=== PATIENT | male | born 1995 | race Caucasian/White ===

== ENCOUNTER 2017-11-24 00:30 | Emergency (ER) | payer MEDICAID ==
[~2017-11-24] VITALS: Ht 182.9 cm; Wt 77.1 kg
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
--- NOTE | 2017-11-24 01:15 | NUR ---
Patient discharged with v/s stable. Written and verbal after care instructions given and explained. Patient verbalized understanding. Police with in custody. All questions addressed prior to discharge. Advised to follow up with PMD.
== END 2017-11-24 01:15 ==
LOC: EDBD 00:30 → MED 00:30
DX: Z02.89 Encounter for other administrative examinations (principal)
CPT/HCPCS: 99283

== ENCOUNTER 2017-11-26 15:36 | Emergency (ER) | payer MEDICAID ==
[~2017-11-26] VITALS: Ht 172.7 cm; Wt 77.1 kg
[2017-11-26 15:46] VITALS: BP 106/54
[2017-11-26 15:47] VITALS: BP 106/54
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
--- NOTE | 2017-11-26 17:07 | NUR ---
pt resting comfortably in the [place] at this time. t appears to be sleeping. VSS. Will continue to monitor.
[2017-11-26 18:06] VITALS: BP 110/62
--- NOTE | 2017-11-26 18:06 | NUR ---
Patient discharged with v/s stable. Written and verbal after care instructions given and explained. Patient verbalized understanding. Ambulatory with steady gait. All questions addressed prior to discharge. Advised to follow up with PMD.
== END 2017-11-26 18:06 | disposition home or self-care (01) ==
LOC: MED 15:36
DX: Z00.8 Encounter for other general examination (principal)
CPT/HCPCS: 99283

== ENCOUNTER 2019-11-26 11:45 | Emergency (ER) | payer MEDICAID ==
[~2019-11-26] VITALS: Ht 180.3 cm; Wt 68.0 kg
--- NOTE | 2019-11-26 11:45 | NUR ---
Patient BIBA BLS, transferred to bed 11. RN evaluating patient at bedside.
[2019-11-26 12:00] VITALS: BP 120/86
--- NOTE | 2019-11-26 12:09 | NUR ---
Dr. Peralta is evaluating the patient at bedside.
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
--- NOTE | 2019-11-26 13:00 | NUR ---
LUNCH TRAY ORDERED FOR PT
--- NOTE | 2019-11-26 14:30 | NUR ---
LUNCH TRAY ARRIVED AND BROUGHT TO PATIENTS BEDSIDE
[2019-11-26 15:14] VITALS: BP 124/64
== END 2019-11-26 15:14 | disposition home or self-care (01) ==
LOC: MED 11:45
DX: J02.9 Acute pharyngitis, unspecified (principal); F17.200 Nicotine dependence, unspecified, uncomplicated; F15.90 Other stimulant use, unspecified, uncomplicated; Z88.1 Allergy status to other antibiotic agents
CPT/HCPCS: 99282

== ENCOUNTER 2019-11-28 18:00 | Inpatient (IN) | payer MEDICAID ==
[~2019-11-28] VITALS: Ht 180.3 cm; Wt 66.7 kg
[2019-11-28 18:02] VITALS: BP 123/98
[2019-11-28] MEDS ORDERED: NACL 0.9% 1,000 ML IV ONE ×2 (18:05→22:40)
[2019-11-28] MEDS ORDERED: ACETAMINOPHEN EXTRA STRENGTH 500 MG TAB PO ONE (18:05)
[2019-11-28 18:37] LABS: BASOPHILS # (AUTO) 0.1 K/uL (0.00-0.22); BASOPHILS % (AUTO) 0.5 % (0.0-2.0); EOSINOPHILS % (AUTO) 0.3 % (0.0-4.0); HEMATOCRIT 40.9 % (36-52); HEMOGLOBIN 13.4 g/dL (12.0-18.0); LYMPHOCYTES # (AUTO) 3.8 K/uL (2.0-11.5); LYMPHOCYTES % (AUTO) 27.7 % (20.5-51.1); MEAN CORPUSCULAR HEMOGLOBIN 29 pg (27-31); MEAN CORPUSCULAR HGB CONC 33 g/dL (33-37); MEAN CORPUSCULAR VOLUME 89.4 fL (80-94); MONOCYTES % (AUTO) 7.2 % (1.7-9.3); NEUTROPHILS # (AUTO) 8.7 K/uL (1.8-7.7); NEUTROPHILS % (AUTO) 64.3 % (42.2-75.2); PLATELET COUNT (AUTO) 404 K/uL (140-450); RED BLOOD CELL COUNT(AUTO) 4.57 MIL/uL (4.20-6.10); RED CELL DISTRIBUTION WIDTH 13.1 % (11.6-13.7); WHITE BLOOD COUNT (AUTO) 13.6 K/uL (4.8-10.8)
[2019-11-28 19:06] LABS: ALBUMIN 3.9 g/dL (3.4-5.0); ANION GAP 15.2 (8-16); ASPARTATE AMINOTRANSFERASE 37 U/L (15-37); CARBON DIOXIDE 27.9 mmol/L (21-32); CHLORIDE 107 mmol/L (98-107); CREATININE 1.4 mg/dL (0.6-1.3); GFR ARICAN-AMERICAN 79 mL/min (>90); GLUCOSE 101 mg/dL (74-106); POTASSIUM 4.1 mmol/L (3.5-5.1); SODIUM SERUM 146 mmol/L (136-145); TOTAL BILIRUBIN 0.3 mg/dL (0.0-1.0); UREA NITROGEN, BLOOD 20 mg/dL (7-18)
[2019-11-28 19:08] LABS: SALICYLATE < 2.8 mg/dL (2.8-20.0)
[2019-11-28 19:09] LABS: ACETAMINOPHEN < 0.5 ug/ml (10-30)
[2019-11-28 19:38] LABS: APPEARANCE,URINE CLEAR (CLEAR); BILIRUBIN,URINE 1+ (NEGATIVE); BLOOD, URINE NEGATIVE (NEGATIVE); COLOR,URINE YELLOW (YELLOW); LEUKOCYTE ESTERASE ,URINE NEGATIVE (NEGATIVE); NITRITE, URINE NEGATIVE (NEGATIVE); PH,URINE 8.5 (5.0-9.0); UGLUCOSE NEGATIVE (NEGATIVE)
[2019-11-28 19:47] LABS: BARBITURATE, URINE NEGATIVE ng/ml (NEG <=200)
[2019-11-28 19:48] LABS: BENZODIAZEPINE, URINE NEGATIVE ng/mL (NEG <=200); CANNABINOID, URINE POSITIVE ng/mL (NEG <=50); COCAINE, URINE NEGATIVE ng/mL (NEG <=300); OPIATE, URINE NEGATIVE ng/mL (NEG <=2000); PHENCYCLIDINE SCREEN,URINE NEGATIVE ng/mL (NEG <=25)
[2019-11-28] MEDS ORDERED: NACL 0.9% 1,000 ML IV SCH (22:36)
[2019-11-28] MEDS ORDERED: HYDROcodone/APAP 5/325 MG 1 TAB TAB PO PRN (22:40)
[2019-11-28] MEDS ORDERED: ACETAMINOPHEN 325 MG TAB PO PRN (22:40)
[2019-11-28] MEDS ORDERED: LORazepam 2 MG/ML VIAL IM/IVP PRN (22:40)
[2019-11-28] MEDS ORDERED: VANCOMYCIN 1,000 MG in DEXTROSE 5% 250 ML IV ONE (22:40)
[2019-11-28] MEDS ORDERED: LORazepam 2 MG/ML VIAL IM ONE (22:40)
[2019-11-28] MEDS ORDERED: DOCUSATE SODIUM 100 MG GELCAP PO PRN (22:40)
[2019-11-28] MEDS ORDERED: ONDANSETRON 4 MG/2 ML VIAL IM/IVP PRN (22:40)
[2019-11-28] MEDS ORDERED: VANCOMYCIN 1,000 MG VIAL ONE (22:51)
[2019-11-28 23:09] LABS: MAGNESIUM 2.1 mg/dL (1.8-2.4); PHOSPHORUS 3.2 mg/dL (2.5-4.9); THYROID STIMULATING HORMONE 0.65 uIU/mL (0.34-3.74)
[2019-11-28] MEDS ORDERED: NACL 0.45% 1,000 ML IV ONE (23:45)
[2019-11-29] VITALS: BP 135/83
[2019-11-29] MEDS ORDERED: LORazepam 2 MG/ML VIAL IM/IVP PRN (00:50)
[2019-11-29] MEDS ORDERED: OLANZapine 5 MG TAB PO PRN (00:50)
[2019-11-29] MEDS ORDERED: VANCOMYCIN PER PHARMACY MC PRN (01:20)
[2019-11-29 06:33] LABS: BASOPHILS % (AUTO) 0.4 % (0.0-2.0); EOSINOPHILS # (AUTO) 0.2 K/uL (0-0.4); EOSINOPHILS % (AUTO) 2.5 % (0.0-4.0); LYMPHOCYTES # (AUTO) 3.1 K/uL (2.0-11.5); LYMPHOCYTES % (AUTO) 32.1 % (20.5-51.1); MEAN CORPUSCULAR HEMOGLOBIN 30 pg (27-31); MEAN CORPUSCULAR HGB CONC 33 g/dL (33-37); MEAN CORPUSCULAR VOLUME 89.7 fL (80-94); MONOCYTES # (AUTO) 0.7 K/uL (0.8-1.0); MONOCYTES % (AUTO) 7.2 % (1.7-9.3); NEUTROPHILS # (AUTO) 5.7 K/uL (1.8-7.7); NEUTROPHILS % (AUTO) 57.8 % (42.2-75.2); PLATELET COUNT (AUTO) 327 K/uL (140-450); RED BLOOD CELL COUNT(AUTO) 4.35 MIL/uL (4.20-6.10); RED CELL DISTRIBUTION WIDTH 13.3 % (11.6-13.7); WHITE BLOOD COUNT (AUTO) 9.8 K/uL (4.8-10.8)
[2019-11-29 06:51] LABS: ANION GAP 13.3 (8-16); CARBON DIOXIDE 27.4 mmol/L (21-32); POTASSIUM 3.7 mmol/L (3.5-5.1)
[2019-11-29 08:00] VITALS: BP 104/60
[2019-11-29] MEDS: QUEtiapine FUMARATE 25 MG TAB PO SCH ×4 (09:01→20:13)
[2019-11-29 09:36] LABS: CHOL/HDL RATIO 2.8 (1-4.5)
[2019-11-29] MEDS: VANCOMYCIN 1,000 MG in DEXTROSE 5% 250 ML IV SCH ×2 (11:06→22:35)
[2019-11-29] MEDS: OLANZapine 5 MG TAB PO SCH (20:13)
[2019-11-30] VITALS: BP 114/66
[2019-11-30 07:41] LABS: BASOPHILS # (AUTO) 0.1 K/uL (0.00-0.22); BASOPHILS % (AUTO) 0.8 % (0.0-2.0); EOSINOPHILS # (AUTO) 0.3 K/uL (0-0.4); EOSINOPHILS % (AUTO) 3.8 % (0.0-4.0); HEMATOCRIT 38.4 % (36-52); HEMOGLOBIN 12.6 g/dL (12.0-18.0); LYMPHOCYTES # (AUTO) 2.5 K/uL (2.0-11.5); LYMPHOCYTES % (AUTO) 32.4 % (20.5-51.1); MEAN CORPUSCULAR HEMOGLOBIN 30 pg (27-31); MEAN CORPUSCULAR HGB CONC 33 g/dL (33-37); MEAN CORPUSCULAR VOLUME 90.2 fL (80-94); MONOCYTES # (AUTO) 0.5 K/uL (0.8-1.0); MONOCYTES % (AUTO) 6.7 % (1.7-9.3); NEUTROPHILS # (AUTO) 4.3 K/uL (1.8-7.7); NEUTROPHILS % (AUTO) 56.3 % (42.2-75.2); PLATELET COUNT (AUTO) 297 K/uL (140-450); RED BLOOD CELL COUNT(AUTO) 4.26 MIL/uL (4.20-6.10); RED CELL DISTRIBUTION WIDTH 13.5 % (11.6-13.7); WHITE BLOOD COUNT (AUTO) 7.7 K/uL (4.8-10.8)
[2019-11-30 07:49] LABS: ANION GAP 9.9 (8-16); CARBON DIOXIDE 29.9 mmol/L (21-32); CREATININE 0.7 mg/dL (0.6-1.3); POTASSIUM 3.8 mmol/L (3.5-5.1)
[2019-11-30 07:53] LABS: MAGNESIUM 1.8 mg/dL (1.8-2.4); PHOSPHORUS 4.2 mg/dL (2.5-4.9)
[2019-11-30 08:00] VITALS: BP 101/56
[2019-11-30] MEDS: QUEtiapine FUMARATE 25 MG TAB PO SCH ×4 (09:31→20:06)
[2019-11-30] MEDS ORDERED: LIDOCAINE MPF 1% 10 MG/ML VIAL INJ SCH (11:30)
[2019-11-30] MEDS: VANCOMYCIN 1,000 MG in DEXTROSE 5% 250 ML IV SCH ×2 (11:58→20:06)
[2019-11-30 16:00] VITALS: BP 103/62
[2019-11-30] MEDS: OLANZapine 5 MG TAB PO SCH (20:06)
[2019-12-01 01:00] VITALS: BP 94/59
[2019-12-01] MEDS: VANCOMYCIN 1,000 MG in DEXTROSE 5% 250 ML IV SCH ×3 (03:27→20:46)
[2019-12-01 08:00] VITALS: BP 110/75
[2019-12-01 08:33] LABS: MAGNESIUM 1.9 mg/dL (1.8-2.4); PHOSPHORUS 4.1 mg/dL (2.5-4.9)
[2019-12-01 08:41] LABS: BASOPHILS % (AUTO) 0.5 % (0.0-2.0); EOSINOPHILS # (AUTO) 0.3 K/uL (0-0.4); EOSINOPHILS % (AUTO) 3.4 % (0.0-4.0); HEMOGLOBIN 13.2 g/dL (12.0-18.0); LYMPHOCYTES # (AUTO) 2.7 K/uL (2.0-11.5); LYMPHOCYTES % (AUTO) 33.3 % (20.5-51.1); MEAN CORPUSCULAR HEMOGLOBIN 30 pg (27-31); MEAN CORPUSCULAR HGB CONC 33 g/dL (33-37); MEAN CORPUSCULAR VOLUME 90.1 fL (80-94); MONOCYTES # (AUTO) 0.4 K/uL (0.8-1.0); MONOCYTES % (AUTO) 5.5 % (1.7-9.3); NEUTROPHILS # (AUTO) 4.6 K/uL (1.8-7.7); NEUTROPHILS % (AUTO) 57.3 % (42.2-75.2); PLATELET COUNT (AUTO) 315 K/uL (140-450); RED BLOOD CELL COUNT(AUTO) 4.44 MIL/uL (4.20-6.10); RED CELL DISTRIBUTION WIDTH 13.2 % (11.6-13.7)
[2019-12-01 08:45] LABS: ANION GAP 13.3 (8-16); CARBON DIOXIDE 28.6 mmol/L (21-32); CREATININE 0.7 mg/dL (0.6-1.3); POTASSIUM 3.9 mmol/L (3.5-5.1)
[2019-12-01] MEDS: QUEtiapine FUMARATE 25 MG TAB PO SCH ×4 (09:25→20:47)
[2019-12-01 16:00] VITALS: BP 106/57
[2019-12-01] MEDS: OLANZapine 5 MG TAB PO SCH (20:47)
[2019-12-02] VITALS: BP 110/60
[2019-12-02] MEDS: VANCOMYCIN 1,000 MG in DEXTROSE 5% 250 ML IV SCH ×2 (04:14→12:28)
[2019-12-02 08:00] VITALS: BP 106/58
[2019-12-02 08:38] LABS: BASOPHILS # (AUTO) 0.1 K/uL (0.00-0.22); BASOPHILS % (AUTO) 1.2 % (0.0-2.0); EOSINOPHILS # (AUTO) 0.3 K/uL (0-0.4); EOSINOPHILS % (AUTO) 4.1 % (0.0-4.0); HEMATOCRIT 38.7 % (36-52); HEMOGLOBIN 12.6 g/dL (12.0-18.0); LYMPHOCYTES % (AUTO) 26.3 % (20.5-51.1); MEAN CORPUSCULAR HEMOGLOBIN 30 pg (27-31); MEAN CORPUSCULAR HGB CONC 33 g/dL (33-37); MEAN CORPUSCULAR VOLUME 90.6 fL (80-94); MONOCYTES # (AUTO) 0.5 K/uL (0.8-1.0); MONOCYTES % (AUTO) 6.3 % (1.7-9.3); NEUTROPHILS # (AUTO) 4.7 K/uL (1.8-7.7); NEUTROPHILS % (AUTO) 62.1 % (42.2-75.2); PLATELET COUNT (AUTO) 287 K/uL (140-450); RED BLOOD CELL COUNT(AUTO) 4.27 MIL/uL (4.20-6.10); WHITE BLOOD COUNT (AUTO) 7.5 K/uL (4.8-10.8)
[2019-12-02] MEDS: QUEtiapine FUMARATE 25 MG TAB PO SCH ×2 (09:37→13:06)
[2019-12-02] MEDS ORDERED: SULF-58 PO (10:59)
[2019-12-02] MEDS ORDERED: ASCO1CAP75 PO (10:59)
[2019-12-02] MEDS ORDERED: QUET25TA46 PO (10:59)
[2019-12-02] MEDS ORDERED: PERMETHRIN 5% 60 GM TUBE TP SCH (11:00)
[2019-12-02] MEDS ORDERED: PERM5CRE3 TP (11:12)
[2019-12-02 11:50] LABS: ANION GAP 12.3 (8-16); CARBON DIOXIDE 27.5 mmol/L (21-32); CREATININE 0.7 mg/dL (0.6-1.3); POTASSIUM 3.8 mmol/L (3.5-5.1)
[2019-12-02 11:52] LABS: MAGNESIUM 1.9 mg/dL (1.8-2.4); PHOSPHORUS 2.8 mg/dL (2.5-4.9)
== END 2019-12-02 15:55 | DRG 812 ==
LOC: MED 18:00 → MTU 22:36
PROVIDERS: ADMIT General Practice; ATTEND General Practice
PROC: 0X9H0ZZ Drainage of Left Wrist Region, Open Approach (ICD-10-PCS; principal; 2019-11-30)
DX: T40.7X1A Poisoning by cannabis (derivatives), accidental (unintentional), initial encounter (principal); N17.0 Acute kidney failure with tubular necrosis; A41.9 Sepsis, unspecified organism; G92 Toxic encephalopathy; L03.114 Cellulitis of left upper limb; E87.0 Hyperosmolality and hypernatremia; F25.9 Schizoaffective disorder, unspecified; L02.414 Cutaneous abscess of left upper limb; F41.9 Anxiety disorder, unspecified; Z59.0 Homelessness; Z79.899 Other long term (current) drug therapy; Z91.14 Patient's other noncompliance with medication regimen; Z88.1 Allergy status to other antibiotic agents; Y92.89 Other specified places as the place of occurrence of the external cause; Z71.51 Drug abuse counseling and surveillance of drug abuser
CPT/HCPCS: 36415; 71045; 76881; 80048; 80053; 80202; 80305; 81003; 83036; 83605; 83690; 83735; 84100; 84443; 85025; 87040; 87070; 87081; 87205; 96361; 96365; 96372; 99285; G0480; G0482; J0696; J2001; J2060; J3370; J7060; Q0092